=== PATIENT | male | born 1995 | race Caucasian/White ===

== ENCOUNTER → 2021-11-07 | Outpatient (CLI) | payer OTHER ==
[~2021-11-07] MED LIST: GASTROGRAFIN SOLUTION 30ML (Q9963) As Ordered ONE; ISOVUE-370 76% 100ML VIAL As Ordered ONE
== END ==
LOC: M RAD 12:00
PROVIDERS: ATTEND Internal Medicine
DX: R19.4 Change in bowel habit (principal); K62.5 Hemorrhage of anus and rectum; K76.89 Other specified diseases of liver
CPT/HCPCS: 74177; Q9963; Q9967

== ENCOUNTER → 2021-12-08 | Outpatient (CLI) | payer OTHER ==
[~2021-12-08] MED LIST changes: -GASTROGRAFIN SOLUTION 30ML (Q9963) As Ordered ONE; -ISOVUE-370 76% 100ML VIAL As Ordered ONE; +PROHANCE 279.3MG/ML 15ML VIAL As Ordered ONE
== END ==
LOC: M RAD 10:29
PROVIDERS: ATTEND Internal Medicine
DX: R93.89 Abnormal findings on diagnostic imaging of other specified body structures (principal)
CPT/HCPCS: 74183; A9576

== ENCOUNTER 2022-06-07 07:28 | Emergency (ER) | payer OTHER ==
[~2022-06-07] VITALS: Ht 180.3 cm; Wt 72.7 kg
[2022-06-07] MEDS ORDERED: PRED10TA2 (07:35)
[2022-06-07] MEDS ORDERED: ANTI2TAB16 (07:35)
[2022-06-07] MEDS ORDERED: VANC125C10 (07:35)
[2022-06-07] MEDS ORDERED: MESA1.2T (07:35)
[2022-06-07] MEDS ORDERED: ACETAMINOPHEN TAB 650MG DOSE (2X325MG) PO ONE (08:15)
[2022-06-07 08:41] LABS: BASO % 0.3 % (0.0-1.0); EOS # 0.8 10^3/uL (0.0-0.5); EOS % 5.1 % (0.0-3.0); HEMATOCRIT 35.9 % (42.0-52.0); HEMOGLOBIN 11.3 g/dl (13.5-17.5); LYMPH # 1.9 10^3/uL (1.5-5.0); LYMPH % 12.3 % (24.0-44.0); MEAN CORPUSCULAR HEMOGLOBIN 29.3 pg (27.0-33.0); MEAN CORPUSCULAR HGB CONC 31.5 g/dl (32.0-36.5); MONO # 1.3 10^3/uL (0.0-0.8); MONO % 8.5 % (2.0-8.0); NEUTROPHILS % 73.3 % (36.0-66.0); PLATELET COUNT, AUTOMATED 419 10^3/uL (150-450); RED BLOOD COUNT 3.86 10^6/uL (4.30-6.10)
[2022-06-07 09:11] LABS: BLOOD UREA NITROGEN 11 MG/DL (9-23); CALCIUM LEVEL 8.6 MG/DL (8.5-10.1); CARBON DIOXIDE LEVEL 31 MMOL/L (20-31); CHLORIDE LEVEL 106 MMOL/L (98-107); CREATININE FOR GFR 0.79 MG/DL (0.70-1.30); GLOMERULAR FILTRATION RATE > 60.0 (>60); GLUCOSE, FASTING 87 MG/DL (60-100); POTASSIUM SERUM 4.4 MMOL/L (3.5-5.1); SODIUM LEVEL 142 MMOL/L (136-145)
[2022-06-07 09:33] VITALS: BP 116/88
== END 2022-06-07 09:35 | disposition home or self-care (01) ==
LOC: M ED 07:28
DX: R07.89 Other chest pain (principal); Z86.19 Personal history of other infectious and parasitic diseases

== ENCOUNTER 2022-06-16 15:20 | Inpatient (IN) | payer OTHER ==
[~2022-06-16] VITALS: Ht 180.3 cm; Wt 66.8 kg
[~2022-06-16 15:20] MED LIST changes: +ANTI2TAB16 PO; +MESA1.2T; +PRED10TA2; -PROHANCE 279.3MG/ML 15ML VIAL As Ordered ONE; +VANC125C10
[2022-06-16] MEDS ORDERED: DIFI200T PO (15:30)
[2022-06-16] MEDS ORDERED: FLOR250C PO (15:30)
[2022-06-16 15:59] LABS: BASO % 0.2 % (0.0-1.0); EOS # 0.1 10^3/uL (0.0-0.5); EOS % 0.7 % (0.0-3.0); HEMATOCRIT 35.4 % (42.0-52.0); HEMOGLOBIN 11.3 g/dl (13.5-17.5); LYMPH # 1.9 10^3/uL (1.5-5.0); LYMPH % 10.5 % (24.0-44.0); MEAN CORPUSCULAR HEMOGLOBIN 28.8 pg (27.0-33.0); MEAN CORPUSCULAR HGB CONC 31.9 g/dl (32.0-36.5); MEAN CORPUSCULAR VOLUME 90.1 fl (80.0-96.0); MONO % 11.5 % (2.0-8.0); NEUTROPHILS # 13.7 10^3/uL (1.5-8.5); NEUTROPHILS % 76.6 % (36.0-66.0); PLATELET COUNT, AUTOMATED 592 10^3/uL (150-450); RED BLOOD COUNT 3.93 10^6/uL (4.30-6.10); WHITE BLOOD COUNT 17.9 10^3/uL (4.0-10.0)
[2022-06-16 16:32] LABS: ALBUMIN 2.7 G/DL (3.2-5.2); ALKALINE PHOSPHATASE 84 U/L (46-116); ALT/SGPT 10 U/L (7.0-40); AST/SGOT 12 U/L (<34); BILIRUBIN,DIRECT 0.2 MG/DL (<0.4); BILIRUBIN,TOTAL 0.6 MG/DL (0.3-1.2); BLOOD UREA NITROGEN 9 MG/DL (9-23); CALCIUM LEVEL 8.5 MG/DL (8.5-10.1); CARBON DIOXIDE LEVEL 25 MMOL/L (20-31); CHLORIDE LEVEL 102 MMOL/L (98-107); CREATININE FOR GFR 1.02 MG/DL (0.70-1.30); GLOMERULAR FILTRATION RATE > 60.0 (>60); GLUCOSE, FASTING 105 MG/DL (60-100); SODIUM LEVEL 138 MMOL/L (136-145); TOTAL PROTEIN 6.8 G/DL (5.7-8.2)
[2022-06-16 16:33] LABS: MONO # 2.1 10^3/uL (0.0-0.8)
[2022-06-16] MEDS ORDERED: PIPERACILLIN/TAZOBACTAM SOD 4.5 GM in D5W MINI-BAG PLUS 50 ML IV ONE (16:55)
[2022-06-16] MEDS ORDERED: NS 2,010 ML in IV 1 EA IV ONE (16:55)
[2022-06-16] MEDS ORDERED: ISOVUE-370 76% 100ML VIAL As Ordered ONE (16:55)
[2022-06-16] MEDS ORDERED: NS 1,000 ML IV ONE (16:55)
[2022-06-16] MEDS ORDERED: HOME MED LIST COMPLETE! XX SCH (19:10)
[2022-06-16] MEDS ORDERED: MORPHINE 2 MG/ML 1ML VIAL IV PRN (19:25)
[2022-06-16] MEDS ORDERED: ONDANSETRON 4MG 2ML VIAL IV PRN (19:25)
[2022-06-16] MEDS: NS 1,000 ML IV SCH (20:22)
[2022-06-16] MEDS: ACETAMINOPHEN TAB 650MG DOSE (2X325MG) PO PRN (20:23)
[2022-06-16 21:45] VITALS: BP 110/56
[2022-06-16] MEDS: FIDAXOMICIN 200 MG TAB (DIFICID) PO SCH (22:24)
[2022-06-16] MEDS: PIPERACILLIN/TAZOBACTAM SOD 3.375 GM in D5W MINI-BAG PLUS 50 ML IV SCH (22:24)
[2022-06-16 23:56] VITALS: BP 98/56
[2022-06-17] MEDS: BUDESONIDE EC 3MG CAP (ENTOCORT EC) PO SCH ×2 (03:28→08:30)
[2022-06-17 04:00] VITALS: BP 88/60
[2022-06-17] MEDS: PIPERACILLIN/TAZOBACTAM SOD 3.375 GM in D5W MINI-BAG PLUS 50 ML IV SCH ×3 (05:23→17:23)
[2022-06-17] MEDS: ACETAMINOPHEN TAB 650MG DOSE (2X325MG) PO PRN (05:36)
[2022-06-17 05:38] VITALS: BP 99/58
[2022-06-17 07:30] VITALS: BP 98/52
[2022-06-17 07:56] LABS: HEMATOCRIT 26.8 % (42.0-52.0); MEAN CORPUSCULAR HGB CONC 32.8 g/dl (32.0-36.5); MEAN CORPUSCULAR VOLUME 88.4 fl (80.0-96.0); RED BLOOD COUNT 3.03 10^6/uL (4.30-6.10); WHITE BLOOD COUNT 14.5 10^3/uL (4.0-10.0)
[2022-06-17 07:57] LABS: HEMOGLOBIN 8.8 g/dl (13.5-17.5); PLATELET COUNT, AUTOMATED 450 10^3/uL (150-450)
[2022-06-17 08:16] LABS: BLOOD UREA NITROGEN 6 MG/DL (9-23); CARBON DIOXIDE LEVEL 26 MMOL/L (20-31); CHLORIDE LEVEL 104 MMOL/L (98-107); CREATININE FOR GFR 0.87 MG/DL (0.70-1.30); GLOMERULAR FILTRATION RATE > 60.0 (>60); GLUCOSE, FASTING 130 MG/DL (60-100); MAGNESIUM LEVEL 1.8 MG/DL (1.8-2.4); POTASSIUM SERUM 4.2 MMOL/L (3.5-5.1); SODIUM LEVEL 137 MMOL/L (136-145)
[2022-06-17] MEDS: FIDAXOMICIN 200 MG TAB (DIFICID) PO SCH ×2 (08:30→21:13)
[2022-06-17] MEDS: NS 1,000 ML IV SCH (08:31)
[2022-06-17] MEDS: LACTOBACILLUS ACIDOPHILUS CAP (BACID) PO SCH (08:31)
[2022-06-17 11:59] VITALS: BP 94/55
[2022-06-17 16:31] VITALS: BP 95/52
[2022-06-17 19:48] VITALS: BP 94/56
[2022-06-17] MEDS: metroNIDAZOLE (FLAGYL) 500MG TABLET PO SCH (21:13)
[2022-06-18 00:02] VITALS: BP 99/55
[2022-06-18] MEDS ORDERED: PINK BISMUTH SUSP 524MG/30ML ORAL SYRINGE PO ONE (00:35)
[2022-06-18 04:00] VITALS: BP 90/55
[2022-06-18] MEDS: metroNIDAZOLE (FLAGYL) 500MG TABLET PO SCH (05:41)
[2022-06-18] MEDS ORDERED: CIPROFLOXACIN 500MG TABLET PO SCH (06:00)
[2022-06-18 07:25] VITALS: BP 101/56
[2022-06-18 07:47] LABS: BASO % 0.3 % (0.0-1.0); EOS # 0.2 10^3/uL (0.0-0.5); EOS % 1.5 % (0.0-3.0); HEMATOCRIT 26.9 % (42.0-52.0); HEMOGLOBIN 8.7 g/dl (13.5-17.5); LYMPH % 12.9 % (24.0-44.0); MEAN CORPUSCULAR HEMOGLOBIN 28.9 pg (27.0-33.0); MEAN CORPUSCULAR HGB CONC 32.3 g/dl (32.0-36.5); MEAN CORPUSCULAR VOLUME 89.4 fl (80.0-96.0); MONO # 1.5 10^3/uL (0.0-0.8); MONO % 9.8 % (2.0-8.0); NEUTROPHILS # 11.6 10^3/uL (1.5-8.5); NEUTROPHILS % 74.8 % (36.0-66.0); PLATELET COUNT, AUTOMATED 509 10^3/uL (150-450); RED BLOOD COUNT 3.01 10^6/uL (4.30-6.10); WHITE BLOOD COUNT 15.4 10^3/uL (4.0-10.0)
[2022-06-18 08:45] LABS: ALBUMIN 1.9 G/DL (3.2-5.2); ALKALINE PHOSPHATASE 65 U/L (46-116); ALT/SGPT < 9 U/L (7.0-40); AST/SGOT 9 U/L (<34); BILIRUBIN,TOTAL 0.3 MG/DL (0.3-1.2); BLOOD UREA NITROGEN 5 MG/DL (9-23); CALCIUM LEVEL 7.3 MG/DL (8.5-10.1); CARBON DIOXIDE LEVEL 26 MMOL/L (20-31); CHLORIDE LEVEL 105 MMOL/L (98-107); CREATININE FOR GFR 0.91 MG/DL (0.70-1.30); GLOMERULAR FILTRATION RATE > 60.0 (>60); GLUCOSE, FASTING 90 MG/DL (60-100); SODIUM LEVEL 135 MMOL/L (136-145); TOTAL PROTEIN 5.2 G/DL (5.7-8.2)
[2022-06-18] MEDS: LACTOBACILLUS ACIDOPHILUS CAP (BACID) PO SCH (09:19)
[2022-06-18] MEDS: FIDAXOMICIN 200 MG TAB (DIFICID) PO SCH (09:19)
[2022-06-18] MEDS: BUDESONIDE EC 3MG CAP (ENTOCORT EC) PO SCH (09:20)
[2022-06-18] MEDS ORDERED: CIPR-249 PO (09:46)
[2022-06-18] MEDS ORDERED: METR-265 PO (09:46)
[2022-06-18] MEDS ORDERED: BUDE3CAP5 PO (09:46)
[2022-06-18] MEDS ORDERED: LIAL1.2T PO (09:54)
[2022-06-18 12:13] VITALS: BP 93/51
== END 2022-06-18 13:49 | disposition home or self-care (01) | DRG 872 ==
LOC: M ED 15:20 → M ED INP 19:24 → M PCU 21:42
PROVIDERS: ADMIT Internal Medicine; ATTEND Student in an Organized Health Care Education/Training Program
DX: A41.9 Sepsis, unspecified organism (principal); N10 Acute pyelonephritis; K51.90 Ulcerative colitis, unspecified, without complications; E87.29 Other acidosis; Z79.899 Other long term (current) drug therapy

== ENCOUNTER 2022-07-05 11:50 | Outpatient (CLI) | payer OTHER ==
[~2022-07-05] VITALS: Ht 180.3 cm; Wt 69.0 kg
[2022-07-05 11:50] VITALS: BP 121/75
[~2022-07-05 11:50] MED LIST changes: +ALBUTEROL SULFATE 2.5MG/0.5ML INH NEB SOLN INH PRN; +BUDE3CAP5 PO; +CIPR-249 PO; +DIFI200T PO; +EPINEPHrine INJ 1 MG/ML 1ML AMP IM PRN; +FLOR250C PO; +LIAL1.2T PO; +METR-265 PO; +diphenhydrAMINE 50MG/ML VIAL IV PRN; +methylPREDNISolone 125MG 2ML VIAL IV PRN
[2022-07-05] MEDS ORDERED: inFLIXimab INJECTION 400 MG in NS 210 ML IV ONE (12:50)
[2022-07-05] MEDS ORDERED: NS 1,000 ML IV SCH (12:50)
[2022-07-05] MEDS ORDERED: diphenhydrAMINE 25MG CAP PO ONE (13:15)
[2022-07-05] MEDS ORDERED: ACETAMINOPHEN TAB 650MG DOSE (2X325MG) PO ONE (13:15)
[2022-07-05] MEDS ORDERED: SLF 3 ML SYR IV PRN (13:20)
[2022-07-05] MEDS ORDERED: ACETAMINOPHEN TAB 650MG DOSE (2X325MG) PO PRN (13:20)
[2022-07-05] MEDS ORDERED: IRON65TA2 PO (13:35)
[2022-07-05] MEDS ORDERED: VITAMIN D PO (13:35)
[2022-07-05 13:45] VITALS: BP 112/59
[2022-07-05 14:15] VITALS: BP 110/58
[2022-07-05 14:30] VITALS: BP 106/56
[2022-07-05 15:00] VITALS: BP 106/58
[2022-07-05 16:10] VITALS: BP 107/58
== END 2022-07-05 16:10 | disposition home or self-care (01) ==
LOC: M INFU 11:50
PROVIDERS: ATTEND Internal Medicine
DX: K52.9 Noninfective gastroenteritis and colitis, unspecified (principal)
CPT/HCPCS: 96413; 96415; J1745

== ENCOUNTER 2022-07-19 11:30 | Outpatient (CLI) | payer OTHER ==
[~2022-07-19] VITALS: Ht 175.3 cm; Wt 70.0 kg
[~2022-07-19 11:30] MED LIST changes: +ACETAMINOPHEN 650MG PO PRIOR TO INFUSION PO ONE; +IRON65TA2 PO; +NS 1,000 ML IV SCH; +VITAMIN D PO; +diphenhydrAMINE 25MG PO PRIOR TO INFUSION PO ONE; +inFLIXimab INJECTION 400 MG in NS 210 ML IV ONE
[2022-07-19 12:04] VITALS: BP 130/66
[2022-07-19 12:45] VITALS: BP 126/59
[2022-07-19 14:10] VITALS: BP 125/70
== END 2022-07-19 14:10 ==
LOC: M INFU 11:30
PROVIDERS: ATTEND Internal Medicine
DX: K52.9 Noninfective gastroenteritis and colitis, unspecified (principal)
CPT/HCPCS: 96413; 96415; J1745

== ENCOUNTER 2022-08-28 13:15 | Emergency (ER) | payer OTHER ==
[~2022-08-28] VITALS: Ht 180.3 cm; Wt 65.6 kg
[~2022-08-28 13:15] MED LIST changes: -ACETAMINOPHEN 650MG PO PRIOR TO INFUSION PO ONE; -ALBUTEROL SULFATE 2.5MG/0.5ML INH NEB SOLN INH PRN; -EPINEPHrine INJ 1 MG/ML 1ML AMP IM PRN; -NS 1,000 ML IV SCH; -diphenhydrAMINE 25MG PO PRIOR TO INFUSION PO ONE; -diphenhydrAMINE 50MG/ML VIAL IV PRN; -inFLIXimab INJECTION 400 MG in NS 210 ML IV ONE; -methylPREDNISolone 125MG 2ML VIAL IV PRN
[2022-08-28] MEDS ORDERED: INFL10VL IV (13:24)
[2022-08-28 14:10] LABS: BASO % 0.4 % (0.0-1.0); EOS # 0.2 10^3/uL (0.0-0.5); EOS % 1.5 % (0.0-3.0); HEMATOCRIT 41.3 % (42.0-52.0); HEMOGLOBIN 13.5 g/dl (13.5-17.5); LYMPH # 1.5 10^3/uL (1.5-5.0); LYMPH % 14.8 % (24.0-44.0); MEAN CORPUSCULAR HEMOGLOBIN 27.7 pg (27.0-33.0); MEAN CORPUSCULAR HGB CONC 32.7 g/dl (32.0-36.5); MEAN CORPUSCULAR VOLUME 84.6 fl (80.0-96.0); MONO # 1.5 10^3/uL (0.0-0.8); MONO % 14.4 % (2.0-8.0); NEUTROPHILS % 68.6 % (36.0-66.0); PLATELET COUNT, AUTOMATED 355 10^3/uL (150-450); RED BLOOD COUNT 4.88 10^6/uL (4.30-6.10); WHITE BLOOD COUNT 10.2 10^3/uL (4.0-10.0)
[2022-08-28 14:36] LABS: BLOOD UREA NITROGEN 6 MG/DL (9-23); CALCIUM LEVEL 8.8 MG/DL (8.5-10.1); CARBON DIOXIDE LEVEL 27 MMOL/L (20-31); CHLORIDE LEVEL 102 MMOL/L (98-107); CREATININE FOR GFR 0.97 MG/DL (0.70-1.30); GLOMERULAR FILTRATION RATE > 60.0 (>60); GLUCOSE, FASTING 92 MG/DL (60-100); POTASSIUM SERUM 4.4 MMOL/L (3.5-5.1); SODIUM LEVEL 136 MMOL/L (136-145)
[2022-08-28] MEDS ORDERED: NS 1,000 ML IV ONE (16:25)
[2022-08-28] MEDS ORDERED: ISOVUE-370 76% 100ML VIAL As Ordered ONE (16:41)
[2022-08-28 16:52] LABS: LIPASE 26 U/L (12-53)
[2022-08-28 16:54] LABS: ALBUMIN 3.1 G/DL (3.2-5.2); ALKALINE PHOSPHATASE 80 U/L (46-116); ALT/SGPT 14 U/L (7.0-40); AST/SGOT 17 U/L (<34); BILIRUBIN,DIRECT 0.1 MG/DL (<0.4); BILIRUBIN,TOTAL 0.4 MG/DL (0.3-1.2); TOTAL PROTEIN 6.8 G/DL (5.7-8.2)
[2022-08-28] MEDS ORDERED: predniSONE 20 MG TAB PO ONE (18:45)
[2022-08-28] MEDS ORDERED: PRED10TA2 PO (18:45)
[2022-08-28 19:03] VITALS: BP 130/71
== END 2022-08-28 19:22 | disposition home or self-care (01) ==
LOC: M ED 13:15
DX: K51.90 Ulcerative colitis, unspecified, without complications (principal); Z86.19 Personal history of other infectious and parasitic diseases; Z79.899 Other long term (current) drug therapy
CPT/HCPCS: 74177; 80048; 80076; 83690; 85025; 87507; 96360; 99284; J7512; Q9967

== ENCOUNTER → 2022-10-04 | Outpatient (CLI) | payer OTHER ==
[~2022-10-04] MED LIST changes: +INFL10VL IV; +PRED10TA2 PO
[2022-10-04 14:58] LABS: BASO % 0.2 % (0.0-1.0); HEMATOCRIT 35.5 % (42.0-52.0); LYMPH # 0.7 10^3/uL (1.5-5.0); LYMPH % 5.4 % (24.0-44.0); MEAN CORPUSCULAR HEMOGLOBIN 26.1 pg (27.0-33.0); MEAN CORPUSCULAR VOLUME 84.3 fl (80.0-96.0); MONO # 0.3 10^3/uL (0.0-0.8); MONO % 2.1 % (2.0-8.0); NEUTROPHILS # 11.1 10^3/uL (1.5-8.5); NEUTROPHILS % 91.8 % (36.0-66.0); PLATELET COUNT, AUTOMATED 508 10^3/uL (150-450); RED BLOOD COUNT 4.21 10^6/uL (4.30-6.10); WHITE BLOOD COUNT 12.1 10^3/uL (4.0-10.0)
[2022-10-04 15:19] LABS: ERYTHROCYTE SEDIMENTATION RATE 54 mm/hr (0-15)
[2022-10-04 15:35] LABS: BLOOD UREA NITROGEN 10 MG/DL (9-23); CALCIUM LEVEL 8.9 MG/DL (8.5-10.1); CARBON DIOXIDE LEVEL 27 MMOL/L (20-31); CHLORIDE LEVEL 101 MMOL/L (98-107); CREATININE FOR GFR 0.79 MG/DL (0.70-1.30); GLOMERULAR FILTRATION RATE > 60.0 (>60); GLUCOSE, FASTING 92 MG/DL (60-100); POTASSIUM SERUM 4.5 MMOL/L (3.5-5.1); SODIUM LEVEL 135 MMOL/L (136-145)
== END ==
LOC: M LAB 13:08
PROVIDERS: ATTEND Physician Assistant
DX: K51.011 Ulcerative (chronic) pancolitis with rectal bleeding (principal)

== ENCOUNTER → 2022-11-01 | Outpatient (REF) | payer OTHER ==
[~2022-11-01] MED LIST changes: +DICY-61 PO; +LOPE2CA PO; +LOPE2CAP PO; +OMEP-173 PO; +PERCOCET PO; +PRED20TA PO; +PRED50TA PO
[2022-11-01 17:44] LABS: HEMATOCRIT 29.6 % (42.0-52.0); HEMOGLOBIN 8.8 g/dl (13.5-17.5); MEAN CORPUSCULAR HEMOGLOBIN 24.2 pg (27.0-33.0); MEAN CORPUSCULAR HGB CONC 29.7 g/dl (32.0-36.5); MEAN CORPUSCULAR VOLUME 81.3 fl (80.0-96.0); PLATELET COUNT, AUTOMATED 453 10^3/uL (150-450); RED BLOOD COUNT 3.64 10^6/uL (4.30-6.10); WHITE BLOOD COUNT 9.1 10^3/uL (4.0-10.0)
[2022-11-01 18:55] LABS: ALBUMIN 1.7 G/DL (3.2-5.2); ALKALINE PHOSPHATASE 229 U/L (46-116); ALT/SGPT 80 U/L (7.0-40); AST/SGOT 31 U/L (<34); BILIRUBIN,TOTAL 0.3 MG/DL (0.3-1.2); BLOOD UREA NITROGEN 12 MG/DL (9-23); CALCIUM LEVEL 8.1 MG/DL (8.5-10.1); CARBON DIOXIDE LEVEL 27 MMOL/L (20-31); CHLORIDE LEVEL 101 MMOL/L (98-107); CREATININE FOR GFR 0.62 MG/DL (0.70-1.30); GLOMERULAR FILTRATION RATE > 60.0 (>60); GLUCOSE, FASTING 91 MG/DL (60-100); PHOSPHORUS LEVEL 3.3 MG/DL (2.5-4.9); POTASSIUM SERUM 5.1 MMOL/L (3.5-5.1); SODIUM LEVEL 136 MMOL/L (136-145); TOTAL PROTEIN 5.5 G/DL (5.7-8.2); TRIGLYCERIDES LEVEL 59 MG/DL (<150)
[2022-11-01 18:58] LABS: ATYPICAL LYMPH 2 % (0-5); LYMPHOCYTES 19 % (16-44); MONOCYTES 6 % (0-5); MYELOCYTES 3 % (0-0); NEUTROPHILS 59 % (28-66)
[2022-11-01 18:59] LABS: HYPOCHROMASIA 2+; PLATELET ESTIMATE INCREASED (NORMAL)
== END ==
LOC: M SHH 16:35
PROVIDERS: ATTEND General Practice
DX: K51.019 Ulcerative (chronic) pancolitis with unspecified complications (principal)

== ENCOUNTER 2022-11-05 12:36 | Inpatient (IN) | payer OTHER ==
[~2022-11-05] VITALS: Ht 182.9 cm; Wt 56.2 kg
[2022-11-05 16:37] LABS: HEMATOCRIT 28.6 % (42.0-52.0); HEMOGLOBIN 8.6 g/dl (13.5-17.5); MEAN CORPUSCULAR HGB CONC 30.1 g/dl (32.0-36.5); MEAN CORPUSCULAR VOLUME 79.7 fl (80.0-96.0); PLATELET COUNT, AUTOMATED 524 10^3/uL (150-450); RED BLOOD COUNT 3.59 10^6/uL (4.30-6.10); WHITE BLOOD COUNT 21.9 10^3/uL (4.0-10.0)
[2022-11-05 16:59] LABS: ALBUMIN 1.5 G/DL (3.2-5.2); ALKALINE PHOSPHATASE 331 U/L (46-116); ALT/SGPT 134 U/L (7.0-40); AST/SGOT 31 U/L (<34); BILIRUBIN,DIRECT 0.2 MG/DL (<0.4); BILIRUBIN,TOTAL 0.3 MG/DL (0.3-1.2); BLOOD UREA NITROGEN 12 MG/DL (9-23); CALCIUM LEVEL 8.1 MG/DL (8.5-10.1); CARBON DIOXIDE LEVEL 26 MMOL/L (20-31); CHLORIDE LEVEL 103 MMOL/L (98-107); CREATININE FOR GFR 0.53 MG/DL (0.70-1.30); GLOMERULAR FILTRATION RATE > 60.0 (>60); GLUCOSE, FASTING 118 MG/DL (60-100); POTASSIUM SERUM 4.7 MMOL/L (3.5-5.1); SODIUM LEVEL 136 MMOL/L (136-145); TOTAL PROTEIN 5.2 G/DL (5.7-8.2)
[2022-11-05 17:11] LABS: ATYPICAL LYMPH 3 % (0-5); LYMPHOCYTES 2 % (16-44); METAMYELOCYTES 3 % (0-0); MONOCYTES 6 % (0-5); MYELOCYTES 3 % (0-0); NEUTROPHILS 12 % (28-66)
[2022-11-05 17:12] LABS: ANISOCYTOSIS 1+; MICROCYTOSIS 1+; PLATELET ESTIMATE INCREASED (NORMAL)
[2022-11-05 17:13] LABS: POIKILOCYTOSIS 1+
[2022-11-05 17:14] LABS: HYPOCHROMASIA 1+
[2022-11-05] MEDS ORDERED: cefTRIAXone SOD 2 GM in D5W MINI-BAG PLUS 50 ML IV ONE (17:50)
[2022-11-05 18:57] LABS: PROCALCITONIN 0.42 ng/ml
[2022-11-05] MEDS ORDERED: NS 1,000 ML IV ONE (19:00)
[2022-11-05 19:15] LABS: APPEARANCE, URINE CLEAR (CLEAR); BACTERIA, URINE AUTO NEGATIVE (NEGATIVE); BILIRUBIN, URINE AUTO NEGATIVE (NEGATIVE); BLOOD, URINE BLOOD NEGATIVE (NEGATIVE); COLOR, URINE YELLOW (YELLOW); GLUCOSE, URINE (UA) AUTO NEGATIVE (NEGATIVE); KETONE, URINE AUTO NEGATIVE (NEGATIVE); LEUKOCYTE ESTERASE, URINE AUTO NEGATIVE (NEGATIVE); MUCUS, URINE SMALL (NEGATIVE); NITRITE, URINE AUTO NEGATIVE (NEGATIVE); PROTEIN, URINE AUTO NEGATIVE (NEGATIVE); RBC, URINE AUTO 0 /HPF (0-3); SPECIFIC GRAVITY URINE AUTO 1.014 (1.002-1.035); SQUAMOUS EPITHELIAL CELL UR AU 0 /HPF (0-6); UROBILINOGEN, URINE AUTO 0.2 mg/dL (0.0-2.0); WBC, URINE AUTO 1 /HPF (0-3)
[2022-11-05 19:49] LABS: RSV AMPLIFICATION NEGATIVE (NEGATIVE)
[2022-11-05] MEDS ORDERED: ACETAMINOPHEN TAB 650MG DOSE (2X325MG) PO PRN (20:55)
[2022-11-05] MEDS ORDERED: HYDROMORPHONE HCL 0.5 MG/ 0.5 ML SYRINGE IV PRN (20:55)
[2022-11-05] MEDS ORDERED: metroNIDAZOLE (FLAGYL) 500MG TABLET PO SCH (21:00)
[2022-11-05] MEDS ORDERED: SODIUM CHLORIDE 0.9% 1000ML IV ONE (21:15)
[2022-11-05] MEDS: HYDROMORPHONE HCL 0.5 MG/ 0.5 ML SYRINGE IV PRN (21:53)
[2022-11-05] MEDS ORDERED: OXYC1TAB23 PO (23:16)
[2022-11-05] MEDS ORDERED: PRED50TA PO (23:16)
[2022-11-05] MEDS ORDERED: BUDE3CAP PO (23:16)
[2022-11-05] MEDS ORDERED: LOPE2CAP PO (23:16)
[2022-11-05] MEDS ORDERED: DIFI200T PO (23:16)
[2022-11-05] MEDS ORDERED: HEPA500011 INJ (23:16)
[2022-11-05] MEDS ORDERED: HOME MED LIST COMPLETE! XX SCH (23:20)
[2022-11-05] MEDS: NS 1,000 ML IV SCH (23:47)
[2022-11-06] MEDS ORDERED: HEPARIN SOD (PORCINE) 5000UNITS/ML 1ML VIAL/SYRINGE SC SCH (06:00)
[2022-11-06 06:11] LABS: BASO # 0.1 10^3/uL (0.0-0.2); BASO % 0.9 % (0.0-1.0); EOS # 0.1 10^3/uL (0.0-0.5); EOS % 0.5 % (0.0-3.0); HEMATOCRIT 27.8 % (42.0-52.0); HEMOGLOBIN 8.5 g/dl (13.5-17.5); LYMPH # 2.8 10^3/uL (1.5-5.0); LYMPH % 20.6 % (24.0-44.0); MEAN CORPUSCULAR HEMOGLOBIN 24.2 pg (27.0-33.0); MEAN CORPUSCULAR HGB CONC 30.6 g/dl (32.0-36.5); MEAN CORPUSCULAR VOLUME 79.2 fl (80.0-96.0); MONO % 13.2 % (2.0-8.0); NEUTROPHILS # 7.6 10^3/uL (1.5-8.5); NEUTROPHILS % 55.4 % (36.0-66.0); PLATELET COUNT, AUTOMATED 497 10^3/uL (150-450); RED BLOOD COUNT 3.51 10^6/uL (4.30-6.10); WHITE BLOOD COUNT 13.8 10^3/uL (4.0-10.0)
[2022-11-06 06:12] LABS: IRON (FE) 9 UG/DL (65-175); PERCENT SATURATION 5.2 % (19.7-50.0); TOTAL IRON BINDING CAPACITY 173 UG/DL (250-425)
[2022-11-06 06:15] LABS: FERRITIN 323.7 NG/ML (10.5-307.3)
[2022-11-06 06:22] LABS: ALBUMIN 1.4 G/DL (3.2-5.2); ALKALINE PHOSPHATASE 286 U/L (46-116); ALT/SGPT 113 U/L (7.0-40); AST/SGOT 21 U/L (<34); BILIRUBIN,TOTAL 0.3 MG/DL (0.3-1.2); BLOOD UREA NITROGEN 11 MG/DL (9-23); CALCIUM LEVEL 8.1 MG/DL (8.5-10.1); CARBON DIOXIDE LEVEL 24 MMOL/L (20-31); CHLORIDE LEVEL 105 MMOL/L (98-107); CREATININE FOR GFR 0.59 MG/DL (0.70-1.30); GLOMERULAR FILTRATION RATE > 60.0 (>60); GLUCOSE, FASTING 74 MG/DL (60-100); MAGNESIUM LEVEL 1.9 MG/DL (1.8-2.4); POTASSIUM SERUM 4.6 MMOL/L (3.5-5.1); SODIUM LEVEL 136 MMOL/L (136-145); TOTAL PROTEIN 4.7 G/DL (5.7-8.2)
[2022-11-06 06:30] LABS: MONO # 1.8 10^3/uL (0.0-0.8)
[2022-11-06 06:49] LABS: ERYTHROCYTE SEDIMENTATION RATE 76 mm/hr (0-15)
[2022-11-06 07:08] LABS: CLOSTRIDIUM DIFFICILE PCR NEGATIVE (NEGATIVE)
[2022-11-06] MEDS ORDERED: ISOVUE-370 76% 100ML VIAL As Ordered ONE (07:36)
[2022-11-06] MEDS: HYDROMORPHONE HCL 0.5 MG/ 0.5 ML SYRINGE IV PRN (08:51)
[2022-11-06] MEDS ORDERED: FIDAXOMICIN 200 MG TAB (DIFICID) PO SCH (09:00)
[2022-11-06] MEDS ORDERED: methylPREDNISolone 125MG 2ML VIAL IV SCH (09:00)
[2022-11-06] MEDS: predniSONE 50 MG TAB PO SCH (10:34)
[2022-11-06] MEDS: NS 1,000 ML IV SCH ×3 (10:34→23:55)
[2022-11-06 12:37] VITALS: BP 108/61
[2022-11-06] MEDS ORDERED: PERCOCET 5MG/325MG TAB PO PRN (12:55)
[2022-11-06 13:38] VITALS: BP 99/54
[2022-11-06 13:50] VITALS: BP 101/62
[2022-11-06] MEDS: BUDESONIDE EC 3MG CAP (ENTOCORT EC) PO SCH (15:54)
[2022-11-06] MEDS ORDERED: FAT EMULSION IV 250 ML IV ONE (18:00)
[2022-11-06] MEDS ORDERED: AMINO AC/ELECTROLYTE/DEX/CALC 2,000 ML IV SCH (18:00)
[2022-11-06] MEDS ORDERED: cefTRIAXone SOD 1 GM in D5W MINI-BAG PLUS 50 ML IV SCH (18:00)
[2022-11-06] MEDS: INSULIN LISPRO (NovoLOG) PER UNIT SC SCH ×2 (18:16→23:52)
[2022-11-06 20:00] VITALS: BP 105/64; TEMP 98.6; O2SAT 97
[2022-11-06] MEDS: LOPERAMIDE 2 MG CAPLET PO PRN (20:12)
[2022-11-07] VITALS: BP 101/61; TEMP 97.6; O2SAT 98
[2022-11-07] MEDS ORDERED: IRON SUCROSE 200 MG in NS 100 ML IV ONE ×2
[2022-11-07] MEDS: LOPERAMIDE 2 MG CAPLET PO PRN (00:35)
[2022-11-07] MEDS: INSULIN LISPRO (NovoLOG) PER UNIT SC SCH ×2 (05:20→12:00)
[2022-11-07 06:34] LABS: HEMATOCRIT 24.4 % (42.0-52.0); HEMOGLOBIN 7.5 g/dl (13.5-17.5); MEAN CORPUSCULAR HEMOGLOBIN 24.3 pg (27.0-33.0); MEAN CORPUSCULAR HGB CONC 30.7 g/dl (32.0-36.5); PLATELET COUNT, AUTOMATED 434 10^3/uL (150-450); RED BLOOD COUNT 3.09 10^6/uL (4.30-6.10); WHITE BLOOD COUNT 10.7 10^3/uL (4.0-10.0)
[2022-11-07 06:59] LABS: ALBUMIN 1.2 G/DL (3.2-5.2); ALKALINE PHOSPHATASE 208 U/L (46-116); ALT/SGPT 69 U/L (7.0-40); AST/SGOT 9 U/L (<34); BILIRUBIN,TOTAL 0.2 MG/DL (0.3-1.2); BLOOD UREA NITROGEN 9 MG/DL (9-23); CALCIUM LEVEL 7.4 MG/DL (8.5-10.1); CARBON DIOXIDE LEVEL 28 MMOL/L (20-31); CHLORIDE LEVEL 105 MMOL/L (98-107); CREATININE FOR GFR 0.47 MG/DL (0.70-1.30); GLOMERULAR FILTRATION RATE > 60.0 (>60); GLUCOSE, FASTING 140 MG/DL (60-100); POTASSIUM SERUM 4.1 MMOL/L (3.5-5.1); SODIUM LEVEL 139 MMOL/L (136-145); TOTAL PROTEIN 4.3 G/DL (5.7-8.2)
[2022-11-07 08:00] VITALS: BP 107/63; TEMP 97.7; O2SAT 97
[2022-11-07] MEDS: BUDESONIDE EC 3MG CAP (ENTOCORT EC) PO SCH (08:36)
[2022-11-07] MEDS: predniSONE 50 MG TAB PO SCH (08:36)
[2022-11-07] MEDS: HYDROMORPHONE HCL 0.5 MG/ 0.5 ML SYRINGE IV PRN (08:43)
[2022-11-07] MEDS ORDERED: PRED20TA PO (11:18)
== END 2022-11-07 13:05 | disposition home health service (06) | DRG 312 ==
LOC: M ED 12:36 → M ED INP 20:12 → ENRESERV 11-06 10:53 → M ICU 11-06 12:27
PROVIDERS: ADMIT Internal Medicine; ATTEND Internal Medicine
DX: R55 Syncope and collapse (principal); A41.9 Sepsis, unspecified organism; K51.918 Ulcerative colitis, unspecified with other complication; E46 Unspecified protein-calorie malnutrition; E86.0 Dehydration; D72.829 Elevated white blood cell count, unspecified; R19.7 Diarrhea, unspecified; Z79.52 Long term (current) use of systemic steroids; Z79.899 Other long term (current) drug therapy; D50.0 Iron deficiency anemia secondary to blood loss (chronic); D63.8 Anemia in other chronic diseases classified elsewhere

== ENCOUNTER → 2022-11-12 | Outpatient (REF) | payer OTHER ==
[~2022-11-12] MED LIST changes: +BUDE3CAP PO; +HEPA500011 INJ; +OXYC1TAB23 PO
[2022-11-12 19:06] LABS: ALKALINE PHOSPHATASE 140 U/L (46-116); ALT/SGPT 50 U/L (7.0-40); AST/SGOT 16 U/L (<34); BILIRUBIN,TOTAL 0.3 MG/DL (0.3-1.2); BLOOD UREA NITROGEN 17 MG/DL (9-23); CALCIUM LEVEL 8.2 MG/DL (8.5-10.1); CARBON DIOXIDE LEVEL 23 MMOL/L (20-31); CHLORIDE LEVEL 107 MMOL/L (98-107); CREATININE FOR GFR 0.66 MG/DL (0.70-1.30); GLOMERULAR FILTRATION RATE > 60.0 (>60); GLUCOSE, FASTING 71 MG/DL (60-100); MAGNESIUM LEVEL 1.9 MG/DL (1.8-2.4); POTASSIUM SERUM 4.2 MMOL/L (3.5-5.1); SODIUM LEVEL 141 MMOL/L (136-145); TOTAL PROTEIN 5.1 G/DL (5.7-8.2); TRIGLYCERIDES LEVEL 77 MG/DL (<150)
[2022-11-12 19:08] LABS: PREALBUMIN 26.9 MG/DL (10.0-40.0)
[2022-11-12 19:47] LABS: BASO # 0.1 10^3/uL (0.0-0.2); BASO % 0.4 % (0.0-1.0); EOS % 0.2 % (0.0-3.0); HEMOGLOBIN 8.5 g/dl (13.5-17.5); LYMPH # 2.9 10^3/uL (1.5-5.0); LYMPH % 18.2 % (24.0-44.0); MEAN CORPUSCULAR HEMOGLOBIN 24.6 pg (27.0-33.0); MEAN CORPUSCULAR HGB CONC 29.3 g/dl (32.0-36.5); MEAN CORPUSCULAR VOLUME 84.1 fl (80.0-96.0); MONO # 1.1 10^3/uL (0.0-0.8); MONO % 6.7 % (2.0-8.0); NEUTROPHILS # 11.3 10^3/uL (1.5-8.5); NEUTROPHILS % 70.1 % (36.0-66.0); PLATELET COUNT, AUTOMATED 594 10^3/uL (150-450); RED BLOOD COUNT 3.45 10^6/uL (4.30-6.10); WHITE BLOOD COUNT 16.2 10^3/uL (4.0-10.0)
== END ==
LOC: M SHH 16:06
PROVIDERS: ATTEND General Practice
DX: K51.019 Ulcerative (chronic) pancolitis with unspecified complications (principal)

== ENCOUNTER → 2022-11-19 | Outpatient (REF) | payer OTHER ==
[2022-11-19 18:44] LABS: BASO % 0.1 % (0.0-1.0); HEMATOCRIT 31.1 % (42.0-52.0); HEMOGLOBIN 9.1 g/dl (13.5-17.5); LYMPH # 0.5 10^3/uL (1.5-5.0); LYMPH % 6.1 % (24.0-44.0); MEAN CORPUSCULAR HEMOGLOBIN 25.2 pg (27.0-33.0); MEAN CORPUSCULAR HGB CONC 29.3 g/dl (32.0-36.5); MEAN CORPUSCULAR VOLUME 86.1 fl (80.0-96.0); MONO # 0.3 10^3/uL (0.0-0.8); MONO % 3.1 % (2.0-8.0); NEUTROPHILS # 7.2 10^3/uL (1.5-8.5); NEUTROPHILS % 90.1 % (36.0-66.0); PLATELET COUNT, AUTOMATED 402 10^3/uL (150-450); RED BLOOD COUNT 3.61 10^6/uL (4.30-6.10)
[2022-11-19 18:59] LABS: ALBUMIN 2.2 G/DL (3.2-5.2); ALKALINE PHOSPHATASE 106 U/L (46-116); ALT/SGPT 21 U/L (7.0-40); AST/SGOT 11 U/L (<34); BILIRUBIN,DIRECT 0.1 MG/DL (<0.4); BILIRUBIN,TOTAL 0.3 MG/DL (0.3-1.2); BLOOD UREA NITROGEN 15 MG/DL (9-23); CALCIUM LEVEL 8.2 MG/DL (8.5-10.1); CARBON DIOXIDE LEVEL 26 MMOL/L (20-31); CHLORIDE LEVEL 107 MMOL/L (98-107); CREATININE FOR GFR 0.68 MG/DL (0.70-1.30); GLOMERULAR FILTRATION RATE > 60.0 (>60); GLUCOSE, FASTING 95 MG/DL (60-100); MAGNESIUM LEVEL 1.8 MG/DL (1.8-2.4); PHOSPHORUS LEVEL 2.9 MG/DL (2.5-4.9); POTASSIUM SERUM 4.5 MMOL/L (3.5-5.1); SODIUM LEVEL 141 MMOL/L (136-145); TOTAL PROTEIN 5.4 G/DL (5.7-8.2); TRIGLYCERIDES LEVEL 64 MG/DL (<150)
== END ==
LOC: M SHH 17:34
PROVIDERS: ATTEND Internal Medicine Gastroenterology
DX: R19.7 Diarrhea, unspecified (principal)
CPT/HCPCS: 80053; 82248; 83735; 84100; 84478; 85025; G0463